=== PATIENT | male | born 1995 | race African-American/Black ===

== ENCOUNTER 2019-07-08 19:58 | Emergency (ER) | payer MEDICAID ==
[~2019-07-08] VITALS: Ht 180.3 cm; Wt 86.2 kg
--- NOTE | 2019-07-08 20:02 | NUR ---
"[id number] FROM STRE[address] FOUND DOWN, ADMITS TO ETOH, XANAX AND MARIJUANA" pt awake, alert, pt on monitor, vss, nad noted, pending md pond
--- NOTE | 2019-07-08 21:30 | NUR ---
pt keeps walking around the er, pt with steady gait, appears clinically sober, pt is asking to leave, dr. johnston made aware.
[2019-07-08 21:39] LABS: APPEARANCE,URINE Clear (CLEAR); BILIRUBIN,URINE Negative (NEGATIVE); BLOOD, URINE Negative Ery/uL (NEGATIVE); COLOR,URINE Yellow (YELLOW); KETONES,URINE Negative (NEGATIVE); LEUKOCYTE ESTERASE ,URINE Negative (NEGATIVE); NITRITE, URINE Negative (NEGATIVE); PH,URINE 5.5 (5.0-8.0); PROTEIN,URINE Negative (NEGATIVE); UGLUCOSE Negative (NEGATIVE); UROBILINOGEN,URINE 0.2 EU/dL (0.2)
--- NOTE | 2019-07-08 22:00 | NUR ---
per dr johnston pt may leave once friend picks him up. d/c paperwork in chart
[2019-07-08 22:47] VITALS: BP 119/64
--- NOTE | 2019-07-08 22:47 | NUR ---
pt's friend picked up pt, pt [id number], -sob, steady gait, nad noted. pt signed all dc paperwork.
== END 2019-07-08 22:48 | disposition home or self-care (01) ==
LOC: ER 19:59
DX: T51.8X1A Toxic effect of other alcohols, accidental (unintentional), initial encounter (principal); F41.9 Anxiety disorder, unspecified; Z98.890 Other specified postprocedural states; Y92.89 Other specified places as the place of occurrence of the external cause
CPT/HCPCS: 80305; 81000-TC